=== PATIENT | female | born 1995 | race Caucasian/White ===

== ENCOUNTER 2024-05-11 12:10 | Emergency (ER) | payer MEDICAID ==
[~2024-05-11] VITALS: Ht 165.1 cm; Wt 65.0 kg
[2024-05-11 12:11] VITALS: TEMP 98.2; O2SAT 98
[2024-05-11] MEDS ORDERED: METOCLOPRAMIDE HCL 10MG/2ML VIAL IV STA (12:27)
[2024-05-11] MEDS ORDERED: FAMOTIDINE 20MG/2ML VIAL IV STA (12:27)
[2024-05-11 13:30] LABS: BASOPHILS % 1.1 % (0.0-2.0); EOSINOPHILS % 1.1 % (0.0-5.0); HEMOGLOBIN. 13.9 g/dL (12.0-16.0); LYMPHOCYTES % 22.7 % (20.0-50.0); MEAN CORPUSCULAR HEMOGLOBIN 29.2 pg (28.0-32.0); MEAN CORPUSCULAR HGB CONC 32.3 g/dL (31.0-37.0); MEAN CORPUSCULAR VOLUME 90.5 fL (81.0-99.0); MEAN PLATELET VOLUME 12.4 fl (7.4-10.4); MONOCYTES % 4.9 % (2.0-8.0); NEUTROPHILS % 70.2 % (40.0-76.0); PLATELET 214 x1000/uL (130-400); RED BLOOD CELL COUNT 4.75 mill/uL (4.2-5.4); WHITE BLOOD COUNT 7.5 x1000/uL (4.5-11.0)
[2024-05-11 13:41] LABS: CLARITY URINE CLOUDY (CLEAR); COLOR URINE YELLOW (YELLOW); GLUCOSE URINE NEGATIVE (NEGATIVE); KETONES URINE NEGATIVE (NEGATIVE); LEUKOCYTE ESTERASE URINE 1+ (NEGATIVE); NITRITE URINE NEGATIVE (NEGATIVE); OCCULT BLOOD URINE NEGATIVE (NEGATIVE); PROTEIN URINE NEGATIVE (NEGATIVE); SPECIFIC GRAVITY URINE 1.017 (1.005-1.030); UROBILINOGEN URINE 0.2 E.U./dL (0.2-1.0)
[2024-05-11 13:42] LABS: CHLORIDE 103 mEq/L (98-107); POTASSIUM 3.8 mEq/L (3.5-5.1); SODIUM 137 mEq/L (136-145)
[2024-05-11 13:43] LABS: CALCIUM 10.4 mg/dL (8.7-10.4); CARBON DIOXIDE 30 mEq/L (21-32)
[2024-05-11 13:47] LABS: CREATININE 0.7 mg/dL (0.6-1.0)
[2024-05-11 13:48] LABS: GLUCOSE 122 mg/dL (70-105); UREA NITROGEN BLOOD 11 mg/dL (9-23)
[2024-05-11 13:49] LABS: ALANINE AMINOTRANSFERASE 42 IU/L (10-49)
[2024-05-11 13:50] LABS: ALBUMIN 4.8 g/dL (3.2-4.8); ASPARTATE AMINOTRANSFERASE 30 IU/L (<34); BILIRUBIN DIRECT 0.1 mg/dL (<=3.0); BILIRUBIN TOTAL 0.6 mg/dL (0.1-1.0); PROTEIN TOTAL 7.8 g/dL (6.0-8.3)
[2024-05-11 13:58] LABS: CALCIUM OXALATE CRYSTALS URINE 1+ /lpf; RBC URINE 0-2 /hpf (0-2); SQUAMOUS EPITHELIAL CELL URINE 1+ /lpf (RARE/1+)
[2024-05-11 13:59] LABS: BACTERIA URINE 2+
[2024-05-11] MEDS: SODIUM CHLORIDE 0.9% 1,000 ML IV ONE (17:10)
[2024-05-11] MEDS: METOCLOPRAMIDE HCL 10MG/2ML VIAL IV NR (17:11)
[2024-05-11] MEDS: FAMOTIDINE 20MG/2ML VIAL IV NR (17:11)
[2024-05-11] MEDS ORDERED: ONDA4TAB50 MT (18:08)
[2024-05-11] MEDS ORDERED: FAMO-135 MT (18:08)
[2024-05-11 18:58] VITALS: BP 124/79; PULSE 71; RESP 16; O2SAT 98
== END 2024-05-11 19:02 | disposition home or self-care (01) ==
LOC: ER 12:10
DX: R10.84 Generalized abdominal pain (principal); E11.9 Type 2 diabetes mellitus without complications; E78.00 Pure hypercholesterolemia, unspecified
CPT/HCPCS: 80076; 80048; 81003; 81025; 83690; 85025; 36415; 74176; 96361; 96374; 96375; 99285; J3490; J2765; J7030; Z7610 ×2

== ENCOUNTER 2024-06-16 07:35 | Inpatient (IN) | payer MEDICAID ==
[~2024-06-16] VITALS: Ht 160 cm; Wt 52.2 kg
[~2024-06-16 07:35] MED LIST: FAMO-135 MT; ONDA4TAB50 MT
[2024-06-16] MEDS: KETOROLAC 30MG/ML VIAL IV STA (07:57)
[2024-06-16] MEDS: SODIUM CHLORIDE 0.9% 1,000 ML IV ONE (08:57)
[2024-06-16 09:06] LABS: CLARITY URINE CLEAR (CLEAR); COLOR URINE YELLOW (YELLOW); GLUCOSE URINE NEGATIVE (NEGATIVE); KETONES URINE NEGATIVE (NEGATIVE); NITRITE URINE NEGATIVE (NEGATIVE); OCCULT BLOOD URINE NEGATIVE (NEGATIVE); PH URINE 6.5 (4.5-8.0); PROTEIN URINE NEGATIVE (NEGATIVE)
[2024-06-16 09:07] LABS: LEUKOCYTE ESTERASE URINE NEGATIVE (NEGATIVE); UROBILINOGEN URINE 0.2 E.U./dL (0.2-1.0)
[2024-06-16 10:42] LABS: HEMATOCRIT. 35.3 % (36.0-48.0); HEMOGLOBIN. 11.8 g/dL (12.0-16.0); MEAN CORPUSCULAR HGB CONC 33.3 g/dL (31.0-37.0); MEAN CORPUSCULAR VOLUME 89.9 fL (81.0-99.0); MEAN PLATELET VOLUME 13.7 fl (7.4-10.4); PLATELET 166 x1000/uL (130-400); RED BLOOD CELL COUNT 3.93 mill/uL (4.2-5.4); RED CELL DISTRIBUTION WIDTH 13.5 % (11.6-14.6)
[2024-06-16 10:49] LABS: DIFFERENTIAL COMMENT 1
[2024-06-16 10:53] LABS: HCG SCREEN NEGATIVE
[2024-06-16 10:54] LABS: CHLORIDE 107 mEq/L (98-107); POTASSIUM 3.1 mEq/L (3.5-5.1); SODIUM 137 mEq/L (136-145)
[2024-06-16 10:55] LABS: CALCIUM 8.9 mg/dL (8.7-10.4); CARBON DIOXIDE 24 mEq/L (21-32)
[2024-06-16 11:00] LABS: CREATININE 0.5 mg/dL (0.6-1.0); GLUCOSE 85 mg/dL (70-105); UREA NITROGEN BLOOD 12 mg/dL (9-23)
[2024-06-16 11:07] LABS: PROTHROMBIN TIME 11.4 sec (9.6-11.0)
[2024-06-16 11:08] LABS: TROPONIN I HIGH SENSITIVITY < 4 ng/L (3.0-34)
[2024-06-16] MEDS ORDERED: VANCOMYCIN 1G PREMIX 200 ML IV ONE (11:15)
[2024-06-16] MEDS: SODIUM CHLORIDE 0.9% (SEPSIS BOLUS) IV ONE (11:23)
[2024-06-16] MEDS: PIPERACILLIN/TAZO 3.375G/50ML 50 ML IV ONE (11:23)
[2024-06-16 11:46] LABS: PLATELET ESTIMATE NORMAL
[2024-06-16] MEDS: VANCOMYCIN 1000MG/250ML 250 ML IV NR (11:55)
[2024-06-16] MEDS ORDERED: DEXTROSE 50% WATER 50ML SYRINGE IV PRN (15:00)
[2024-06-16] MEDS: PIPERACILLIN/TAZO 3.375G/50ML 50 ML IV SCH (16:54)
[2024-06-16] MEDS: BLOOD SUGAR DIAGNOSTIC STRIP TEST SCH (16:56)
[2024-06-16] MEDS: ACETAMINOPHEN 325MG TABLET PO PRN (17:06)
[2024-06-16] MEDS: INSULIN LISPRO 100 UNITS/ML SUBCUT SCH (17:07)
[2024-06-16 20:00] VITALS: BP 100/61; PULSE 92; RESP 15; TEMP 37.55856; O2SAT 98
[2024-06-16] MEDS: POTASSIUM CHLORIDE 20MEQ TABLET SR PO NR (22:26)
[2024-06-16] MEDS: PANTOPRAZOLE 40MG DR TABLET PO SCH (22:26)
[2024-06-16] MEDS: HYDROCODONE/ACETAMINOPHEN 5/325MG TABLET PO PRN (22:27)
[2024-06-17] VITALS (7 sets, daily range): BP systolic 80–104; BP diastolic 43–65; PULSE 72–84; RESP 18–20; TEMP 36.72516–36.9474; O2SAT 98–99
[2024-06-17 05:58] LABS: BASOPHILS % 0.3 % (0.0-2.0); EOSINOPHILS % 0.6 % (0.0-5.0); HEMATOCRIT. 31.1 % (36.0-48.0); HEMOGLOBIN. 10.3 g/dL (12.0-16.0); LYMPHOCYTES % 12.3 % (20.0-50.0); MEAN CORPUSCULAR HEMOGLOBIN 30.6 pg (28.0-32.0); MEAN CORPUSCULAR HGB CONC 33.2 g/dL (31.0-37.0); MEAN CORPUSCULAR VOLUME 92.3 fL (81.0-99.0); MEAN PLATELET VOLUME 14.4 fl (7.4-10.4); MONOCYTES % 5.4 % (2.0-8.0); NEUTROPHILS % 81.4 % (40.0-76.0); PLATELET 139 x1000/uL (130-400); RED BLOOD CELL COUNT 3.37 mill/uL (4.2-5.4); WHITE BLOOD COUNT 13.6 x1000/uL (4.5-11.0)
[2024-06-17] MEDS: ONDANSETRON HCL 4MG/2ML INJ IV PRN (06:02)
[2024-06-17 06:14] LABS: CARBON DIOXIDE 23 mEq/L (21-32); CHLORIDE 110 mEq/L (98-107); POTASSIUM 3.7 mEq/L (3.5-5.1); SODIUM 138 mEq/L (136-145)
[2024-06-17 06:15] LABS: CALCIUM 7.7 mg/dL (8.7-10.4); DIFFERENTIAL COMMENT 1
[2024-06-17 06:20] LABS: CREATININE 0.6 mg/dL (0.6-1.0); GLUCOSE 233 mg/dL (70-105); UREA NITROGEN BLOOD 12 mg/dL (9-23)
[2024-06-17 14:41] LABS: HEPATITIS B SURFACE ANTIGEN NEGATIVE (Negative)
[2024-06-17 15:02] LABS: HEPATITIS C AB NON REACTIVE (Neg) (Negative)
[2024-06-18 08:14] VITALS: BP 96/58; PULSE 75; RESP 18; TEMP 36.6696; O2SAT 98
[2024-06-18] MEDS ORDERED: LEVO-65 MT (11:00)
[2024-06-18 12:00] VITALS: BP 99/60; PULSE 78; RESP 18; TEMP 37.11408; O2SAT 99
[2024-06-18 12:26] VITALS: BP 99/60; PULSE 78; TEMP 98; O2SAT 100
[2024-06-18] MEDS: SILVER NITRATE APPLICATOR STICK TOP NR (12:36)
== END 2024-06-18 14:38 | disposition home or self-care (01) | DRG 720 ==
LOC: ER 07:49 → 5WST 11:28 → EDBEDREQTM 11:31 → EDBEDREQ 11:31 → 5WST 13:33 → UNDOADMIN 13:33 → 7WST 06-17 05:51
PROVIDERS: ADMIT Internal Medicine; ATTEND Internal Medicine
PROC: 0Y993ZZ Drainage of Right Lower Extremity, Percutaneous Approach (ICD-10-PCS; principal; 2024-06-18)
DX: A41.89 Other specified sepsis (principal); D64.9 Anemia, unspecified; E10.9 Type 1 diabetes mellitus without complications; E87.6 Hypokalemia; E78.00 Pure hypercholesterolemia, unspecified; L98.0 Pyogenic granuloma; Z20.822 Contact with and (suspected) exposure to COVID-19; L60.0 Ingrowing nail; Z79.4 Long term (current) use of insulin
CPT/HCPCS: 36415; 71045; 80048; 81003; 82962; 83605; 84145; 84484; 84703; 85025; 86705; 87340; 87426; 87804; 93005; 99285; J1815; J1885; J2405; J2543; J3370; J7030

== ENCOUNTER 2025-02-03 21:07 | Inpatient (IN) | payer MEDICAID ==
[~2025-02-03] VITALS: Ht 165.1 cm; Wt 69.9 kg
[~2025-02-03 21:07] MED LIST changes: -FAMO-135 MT; +LEVO-65 MT; +METO5TAB86 MT; -ONDA4TAB50 MT; +PROT40 MT
[2025-02-03 21:08] VITALS: O2SAT 100
[2025-02-03 21:44] LABS: BASOPHILS % 0.5 % (0.0-2.0); EOSINOPHILS % 0.7 % (0.0-5.0); HEMATOCRIT. 41.3 % (36.0-48.0); HEMOGLOBIN. 13.6 g/dL (12.0-16.0); LYMPHOCYTES % 13.5 % (20.0-50.0); MEAN CORPUSCULAR HEMOGLOBIN 29.2 pg (28.0-32.0); MEAN CORPUSCULAR HGB CONC 33.1 g/dL (31.0-37.0); MEAN CORPUSCULAR VOLUME 88.4 fL (81.0-99.0); MEAN PLATELET VOLUME 13.1 fl (7.4-10.4); MONOCYTES % 4.3 % (2.0-8.0); PLATELET 186 x1000/uL (130-400); RED BLOOD CELL COUNT 4.67 mill/uL (4.2-5.4); RED CELL DISTRIBUTION WIDTH 14.5 % (11.6-14.6); WHITE BLOOD COUNT 15.8 x1000/uL (4.5-11.0)
[2025-02-03 21:51] LABS: CHLORIDE 100 mEq/L (98-107); POTASSIUM 3.1 mEq/L (3.5-5.1); SODIUM 137 mEq/L (136-145)
[2025-02-03 21:52] LABS: CARBON DIOXIDE 22 mEq/L (21-32)
[2025-02-03 21:53] LABS: CALCIUM 10.7 mg/dL (8.7-10.4)
[2025-02-03 21:57] LABS: UREA NITROGEN BLOOD 13 mg/dL (9-23)
[2025-02-03 22:16] LABS: GLUCOSE 486 mg/dL (70-105); TROPONIN I HIGH SENSITIVITY < 4 ng/L (3.0-34)
[2025-02-03] MEDS: BLOOD SUGAR DIAGNOSTIC STRIP TEST ONE (22:28)
[2025-02-03] MEDS: SODIUM CHLORIDE 0.9% 1,000 ML IV ONE (22:28)
[2025-02-03 23:15] LABS: HCG SCREEN NEGATIVE
[2025-02-03] MEDS: ONDANSETRON HCL 4MG/2ML INJ IV ONE (23:23)
[2025-02-03] MEDS: MORPHINE SULFATE 4 MG/ML INJ (FOR IV/IM USE) IV ONE (23:25)
[2025-02-04] MEDS: KCL 20MEQ/100ML PREMIX 100 ML IV ONE (01:18)
[2025-02-04] MEDS ORDERED: DEXTROSE 50% WATER 50ML SYRINGE IV PRN ×4 (02:00→03:30)
[2025-02-04 02:14] LABS: BG BASE EXCESS -3.2 mmol/L (-2.0-3.0); BG CARBOXYHEMOGLOBIN 0.3 % (0.5-1.5); BG DEOXYHEMOGLOBIN 1.9 % (0.0-5.0); BG FRACTION INSPIRED OXYGEN 21; BG HCO3 ACT 18.3 mmol/L (21.0-28.0); BG OXYGEN SATURATION 98.1 % (94.0-98.0); BG OXYHEMOGLOBIN 97.8 % (94.0-98.0); BG PCO2 23.5 mmHg (32.0-45.0); BG PH 7.509 (7.350-7.450); BG PO2 102.6 mmHg (83.0-108.0); BG SAMPLE SITE RIGHT BRACHIAL; BG TOTAL HEMOGLOBIN 11.8 g/dL (12.0-16.0); BG VENT MODE ROOM AIR
[2025-02-04] MEDS: PANTOPRAZOLE SODIUM 40 MG/VIAL IV SCH (03:35)
[2025-02-04] MEDS: MORPHINE SULFATE 4 MG/ML INJ (FOR IV/IM USE) IV PRN ×2 (04:30→06:58)
[2025-02-04 05:05] VITALS: BP 131/76; PULSE 69; RESP 20; TEMP 36.1
[2025-02-04] MEDS: HYDROCODONE/ACETAMINOPHEN 10/325MG TABLET PO PRN (05:37)
[2025-02-04] MEDS: SODIUM CHLORIDE 0.9% 1,000 ML IV SCH (05:37)
[2025-02-04] MEDS: ONDANSETRON HCL 4MG/2ML INJ IV PRN (05:39)
[2025-02-04 05:56] LABS: HEMATOCRIT. 35.4 % (36.0-48.0); HEMOGLOBIN. 11.6 g/dL (12.0-16.0); MEAN CORPUSCULAR HEMOGLOBIN 28.6 pg (28.0-32.0); MEAN CORPUSCULAR HGB CONC 32.7 g/dL (31.0-37.0); MEAN CORPUSCULAR VOLUME 87.4 fL (81.0-99.0); MEAN PLATELET VOLUME 13.3 fl (7.4-10.4); PLATELET 143 x1000/uL (130-400); RED BLOOD CELL COUNT 4.05 mill/uL (4.2-5.4); RED CELL DISTRIBUTION WIDTH 14.5 % (11.6-14.6); WHITE BLOOD COUNT 15.9 x1000/uL (4.5-11.0)
[2025-02-04 06:03] LABS: CHLORIDE 103 mEq/L (98-107); POTASSIUM 3.6 mEq/L (3.5-5.1); SODIUM 138 mEq/L (136-145)
[2025-02-04 06:04] LABS: CARBON DIOXIDE 22 mEq/L (21-32)
[2025-02-04 06:09] LABS: CREATININE 0.7 mg/dL (0.6-1.0); GLUCOSE 327 mg/dL (70-105); UREA NITROGEN BLOOD 11 mg/dL (9-23)
[2025-02-04] MEDS: BLOOD SUGAR DIAGNOSTIC STRIP TEST SCH (06:09)
[2025-02-04 06:30] LABS: DIFFERENTIAL COMMENT 1
[2025-02-04] MEDS: INSULIN LISPRO 100 UNITS/ML SUBCUT SCH ×2 (06:46→06:49)
[2025-02-04 08:00] VITALS: BP 98/48; PULSE 60; RESP 16; TEMP 36.7; O2SAT 98
[2025-02-04] MEDS ORDERED: INSULIN LISPRO 100 UNITS/ML SUBCUT SCH (08:20)
[2025-02-04] MEDS ORDERED: NALOXONE HCL 0.4MG/ML VIAL IV PRN (08:30)
[2025-02-04] MEDS ORDERED: BLOOD SUGAR DIAGNOSTIC STRIP TEST SCH (09:00)
[2025-02-04] MEDS: INSULIN GLARGINE 100 UNITS/ML SUBCUT SCH (10:19)
[2025-02-04] MEDS: METOCLOPRAMIDE HCL 10MG/2ML VIAL IV PRN (10:51)
[2025-02-04 12:00] VITALS: BP 94/50; PULSE 64; RESP 18; TEMP 36.2; O2SAT 99
[2025-02-04] MEDS ORDERED: KETOROLAC 30MG/ML VIAL IV PRN (12:30)
[2025-02-04 14:53] LABS: PLATELET ESTIMATE NORMAL
[2025-02-04 16:00] VITALS: BP 109/70; PULSE 69; RESP 18; TEMP 36.1; O2SAT 98
[2025-02-04 18:25] LABS: CLARITY URINE CLOUDY (CLEAR); COLOR URINE YELLOW (YELLOW); GLUCOSE URINE 2+ (NEGATIVE); KETONES URINE 2+ (NEGATIVE); LEUKOCYTE ESTERASE URINE 2+ (NEGATIVE); NITRITE URINE NEGATIVE (NEGATIVE); OCCULT BLOOD URINE TRACE (NEGATIVE); PH URINE 5.5 (4.5-8.0); PROTEIN URINE 1+ (NEGATIVE); SPECIFIC GRAVITY URINE 1.018 (1.005-1.030); UROBILINOGEN URINE 0.2 E.U./dL (0.2-1.0)
[2025-02-04 18:56] LABS: BACTERIA URINE 4+; SQUAMOUS EPITHELIAL CELL URINE 2+ /lpf (RARE/1+)
[2025-02-04 18:57] LABS: RBC URINE 0-2 /hpf (0-2); WBC URINE 50-100 /hpf (0-2)
[2025-02-04 20:00] VITALS: BP 102/67; PULSE 72; RESP 18; TEMP 36.2; O2SAT 99
[2025-02-05] VITALS: BP 122/68; PULSE 76; RESP 18; TEMP 36.3; O2SAT 97
[2025-02-05 04:00] VITALS: BP 108/67; PULSE 62; RESP 18; TEMP 36.2; O2SAT 97
[2025-02-05 09:56] LABS: BASOPHILS % 0.6 % (0.0-2.0); HEMATOCRIT. 36.4 % (36.0-48.0); LYMPHOCYTES % 16.6 % (20.0-50.0); MEAN CORPUSCULAR HEMOGLOBIN 29.1 pg (28.0-32.0); MEAN CORPUSCULAR HGB CONC 33.1 g/dL (31.0-37.0); MEAN CORPUSCULAR VOLUME 88.1 fL (81.0-99.0); MEAN PLATELET VOLUME 13.5 fl (7.4-10.4); MONOCYTES % 5.6 % (2.0-8.0); NEUTROPHILS % 76.2 % (40.0-76.0); PLATELET 169 x1000/uL (130-400); RED BLOOD CELL COUNT 4.13 mill/uL (4.2-5.4); RED CELL DISTRIBUTION WIDTH 14.5 % (11.6-14.6); WHITE BLOOD COUNT 11.5 x1000/uL (4.5-11.0)
[2025-02-05] MEDS ORDERED: LEVO-65 MT (11:07)
[2025-02-05] MEDS: LEVOFLOXACIN 250MG TABLET PO SCH (14:00)
[2025-02-05 15:47] VITALS: BP 103/62; PULSE 68; TEMP 97.7
== END 2025-02-05 18:15 | disposition home or self-care (01) | DRG 425 ==
LOC: ER 21:07 → 8WST 02-04 00:45 → CMPBEDREQ 02-04 00:48
PROVIDERS: ADMIT Internal Medicine; ATTEND Internal Medicine
DX: E87.6 Hypokalemia (principal); D72.825 Bandemia; E11.65 Type 2 diabetes mellitus with hyperglycemia; E78.00 Pure hypercholesterolemia, unspecified; I10 Essential (primary) hypertension
CPT/HCPCS: 36415; 36600; 71045; 74176; 80048; 80061; 81003; 82375; 82805; 82962; 83036; 83880; 84145; 84484; 84703; 85025; 87077; 87186; 93005; 96374; 96375; 99285; J1815; J2270; J2405; J2470; J2765; J3480; J7030

== ENCOUNTER 2025-03-27 10:15 | Emergency (ER) | payer MEDICAID ==
[~2025-03-27] VITALS: Ht 160 cm; Wt 54.0 kg
[2025-03-27 10:38] VITALS: O2SAT 100
[2025-03-27 11:33] LABS: BASOPHILS % 0.7 % (0.0-2.0); EOSINOPHILS % 2.9 % (0.0-5.0); HEMATOCRIT. 37.3 % (36.0-48.0); HEMOGLOBIN. 12.3 g/dL (12.0-16.0); LYMPHOCYTES % 20.4 % (20.0-50.0); MEAN PLATELET VOLUME 12.7 fl (7.4-10.4); MONOCYTES % 6.3 % (2.0-8.0); NEUTROPHILS % 69.7 % (40.0-76.0); PLATELET 166 x1000/uL (130-400); RED BLOOD CELL COUNT 4.22 mill/uL (4.2-5.4); RED CELL DISTRIBUTION WIDTH 14.4 % (11.6-14.6)
[2025-03-27 11:51] LABS: CREATININE 0.7 mg/dL (0.6-1.0); UREA NITROGEN BLOOD 12 mg/dL (9-23)
[2025-03-27 11:53] LABS: ASPARTATE AMINOTRANSFERASE 15 IU/L (<34); BILIRUBIN DIRECT 0.1 mg/dL (<=3.0); BILIRUBIN TOTAL 0.5 mg/dL (0.1-1.0); PROTEIN TOTAL 6.4 g/dL (6.0-8.3)
[2025-03-27 12:01] LABS: CLARITY URINE CLEAR (CLEAR); COLOR URINE YELLOW (YELLOW); GLUCOSE URINE NEGATIVE (NEGATIVE); KETONES URINE NEGATIVE (NEGATIVE); LEUKOCYTE ESTERASE URINE NEGATIVE (NEGATIVE); NITRITE URINE NEGATIVE (NEGATIVE); OCCULT BLOOD URINE NEGATIVE (NEGATIVE); PH URINE 7.5 (4.5-8.0); PROTEIN URINE NEGATIVE (NEGATIVE); SPECIFIC GRAVITY URINE 1.011 (1.005-1.030); UROBILINOGEN URINE 0.2 E.U./dL (0.2-1.0)
[2025-03-27] MEDS: ONDANSETRON 4MG ODT PO ONE (12:29)
[2025-03-27] MEDS: ACETAMINOPHEN 500MG TABLET PO ONE (12:29)
[2025-03-27] MEDS ORDERED: ONDA4TAB50 MT (13:28)
[2025-03-27 13:38] VITALS: BP 123/76; PULSE 89; RESP 16; TEMP 36.8; O2SAT 100
[2025-03-27] MEDS ORDERED: IOHEXOL-300 100 ML BOTTLE ONE (23:49)
[2025-04-10] MEDS ORDERED: POTA-354 MT (14:03)
[2025-04-10] MEDS ORDERED: DOCU100T MT (14:03)
[2025-04-10] MEDS ORDERED: INSLIS SUBCUT (14:03)
[2025-04-10] MEDS ORDERED: LANTUSUD SUBCUT (14:03)
== END 2025-03-27 13:39 | disposition home or self-care (01) ==
LOC: ER 10:15
DX: R10.32 Left lower quadrant pain (principal); E11.9 Type 2 diabetes mellitus without complications; E78.00 Pure hypercholesterolemia, unspecified; I10 Essential (primary) hypertension; Z79.899 Other long term (current) drug therapy; Z87.11 Personal history of peptic ulcer disease; Z87.19 Personal history of other diseases of the digestive system
CPT/HCPCS: 80076; 80048; 81003; 81025; 83690; 85025; 36415; 74177; 99285; Q9967; Q0162; Z7610

== ENCOUNTER 2025-04-03 05:07 | Emergency (ER) | payer MEDICAID ==
[~2025-04-03] VITALS: Ht 160 cm; Wt 54.6 kg
[~2025-04-03 05:07] MED LIST changes: +ONDA4TAB50 MT
[2025-04-03 05:28] VITALS: O2SAT 99
[2025-04-03] MEDS ORDERED: KETOROLAC 15MG/ML VIAL IV ONE (05:45)
[2025-04-03 05:55] LABS: BASOPHILS % 0.1 % (0.0-2.0); EOSINOPHILS % 0.0 % (0.0-5.0); HEMATOCRIT. 37.2 % (36.0-48.0); HEMOGLOBIN. 12.3 g/dL (12.0-16.0); LYMPHOCYTES % 7.3 % (20.0-50.0); MEAN PLATELET VOLUME 12.8 fl (7.4-10.4); MONOCYTES % 3.6 % (2.0-8.0); NEUTROPHILS % 89.0 % (40.0-76.0); PLATELET 193 x1000/uL (130-400); RED BLOOD CELL COUNT 4.24 mill/uL (4.2-5.4); RED CELL DISTRIBUTION WIDTH 14.3 % (11.6-14.6)
[2025-04-03] MEDS: DIPHENHYDRAMINE 50MG/ML VIAL IV ONE (06:03)
[2025-04-03] MEDS: ONDANSETRON HCL 4MG/2ML INJ IV ONE (06:04)
[2025-04-03 06:06] LABS: CREATININE 0.8 mg/dL (0.6-1.0); UREA NITROGEN BLOOD 18 mg/dL (9-23)
[2025-04-03] MEDS: ACETAMINOPHEN 1000MG/100ML 100 ML IV ONE (06:06)
[2025-04-03 06:08] LABS: ASPARTATE AMINOTRANSFERASE 19 IU/L (<34); BILIRUBIN DIRECT 0.2 mg/dL (<=3.0); BILIRUBIN TOTAL 0.9 mg/dL (0.1-1.0); PROTEIN TOTAL 7.4 g/dL (6.0-8.3)
[2025-04-03] MEDS: SODIUM CHLORIDE 0.9% 1,000 ML IV ONE (06:16)
[2025-04-03 06:38] LABS: HCG SCREEN NEGATIVE
[2025-04-03] MEDS: MORPHINE SULFATE 4 MG/ML INJ (FOR IV/IM USE) IV ONE (06:58)
[2025-04-03 07:19] LABS: CLARITY URINE CLEAR (CLEAR); COLOR URINE YELLOW (YELLOW); GLUCOSE URINE 3+ (NEGATIVE); KETONES URINE 4+ (NEGATIVE); LEUKOCYTE ESTERASE URINE NEGATIVE (NEGATIVE); NITRITE URINE NEGATIVE (NEGATIVE); OCCULT BLOOD URINE 3+ (NEGATIVE); PH URINE 5.5 (4.5-8.0); PROTEIN URINE 1+ (NEGATIVE); SPECIFIC GRAVITY URINE 1.043 (1.005-1.030); UROBILINOGEN URINE 0.2 E.U./dL (0.2-1.0)
[2025-04-03 08:02] LABS: SQUAMOUS EPITHELIAL CELL URINE 3+ /lpf (RARE/1+)
[2025-04-03 08:03] LABS: BACTERIA URINE 1+; RBC URINE 0-2 /hpf (0-2)
[2025-04-03] MEDS ORDERED: ONDA4TAB50 PO (08:30)
[2025-04-03] MEDS ORDERED: TOPUD PO (08:30)
[2025-04-03 10:10] VITALS: BP 101/60; PULSE 72; RESP 14; TEMP 36.7; O2SAT 99
[2025-04-10] MEDS ORDERED: DOCU100T MT (14:03)
[2025-04-10] MEDS ORDERED: INSLIS SUBCUT (14:03)
[2025-04-10] MEDS ORDERED: LANTUSUD SUBCUT (14:03)
[2025-04-10] MEDS ORDERED: POTA-354 MT (14:03)
== END 2025-04-03 10:10 | disposition home or self-care (01) ==
LOC: ER 05:07
DX: K52.9 Noninfective gastroenteritis and colitis, unspecified (principal); E11.9 Type 2 diabetes mellitus without complications; Z79.899 Other long term (current) drug therapy; Z98.890 Other specified postprocedural states
CPT/HCPCS: 80076; 80048; 81003; 81025; 84703; 83690; 85025; 36415; 76830; 76856; 96365; 96366; 96375; 99285; J1200; J2405; J2270; J7030; Z7610 ×3; A4606; J0131

== ENCOUNTER 2025-04-03 13:57 | Emergency (ER) | payer MEDICAID ==
[~2025-04-03] VITALS: Ht 160 cm; Wt 55.0 kg
[~2025-04-03 13:57] MED LIST changes: +ONDA4TAB50 PO; +TOPUD PO
[2025-04-03 14:00] VITALS: BP 142/72; TEMP 37; O2SAT 99
[2025-04-03 14:01] VITALS: PULSE 94; RESP 18; O2SAT 98
[2025-04-03] MEDS: HALOPERIDOL LACTATE 5MG/ML VIAL IM ONE (14:14)
[2025-04-03] MEDS: MAGNESIUM/ALUMINUM HYDROXIDE/SIMETHICONE 30ML UDC PO ONE (14:52)
[2025-04-03] MEDS: ACETAMINOPHEN 500MG TABLET PO ONE (14:52)
[2025-04-03] MEDS: VISCOUS LIDOCAINE 2% 15 ML UDC MM ONE (14:52)
[2025-04-10] MEDS ORDERED: POTA-354 MT (14:03)
[2025-04-10] MEDS ORDERED: LANTUSUD SUBCUT (14:03)
[2025-04-10] MEDS ORDERED: DOCU100T MT (14:03)
[2025-04-10] MEDS ORDERED: INSLIS SUBCUT (14:03)
== END 2025-04-03 15:57 | disposition home or self-care (01) ==
LOC: ER 13:57
DX: F12.90 Cannabis use, unspecified, uncomplicated (principal); R11.2 Nausea with vomiting, unspecified; E11.9 Type 2 diabetes mellitus without complications; Z79.899 Other long term (current) drug therapy; Z98.890 Other specified postprocedural states
CPT/HCPCS: 99283; 96372; J1630

== ENCOUNTER 2025-07-04 19:13 | Emergency (ER) | payer MEDICAID ==
[~2025-07-04] VITALS: Ht 162.6 cm; Wt 58.0 kg
[~2025-07-04 19:13] MED LIST changes: +DOCU100T MT; +INSLIS SUBCUT; +LANTUSUD SUBCUT; -LEVO-65 MT; -ONDA4TAB50 PO; +POTA-354 MT
[2025-07-04 19:23] VITALS: O2SAT 99
[2025-07-04 22:53] LABS: BASOPHILS % 0.7 % (0.0-2.0); EOSINOPHILS % 1.1 % (0.0-5.0); HEMATOCRIT. 33.2 % (36.0-48.0); HEMOGLOBIN. 11.0 g/dL (12.0-16.0); LYMPHOCYTES % 14.3 % (20.0-50.0); MEAN PLATELET VOLUME 13.6 fl (7.4-10.4); MONOCYTES % 2.8 % (2.0-8.0); NEUTROPHILS % 81.1 % (40.0-76.0); PLATELET 182 x1000/uL (130-400); RED BLOOD CELL COUNT 3.70 mill/uL (4.2-5.4); RED CELL DISTRIBUTION WIDTH 13.9 % (11.6-14.6)
[2025-07-04 22:56] LABS: CLARITY URINE CLEAR (CLEAR); COLOR URINE YELLOW (YELLOW); GLUCOSE URINE 3+ (NEGATIVE); KETONES URINE NEGATIVE (NEGATIVE); LEUKOCYTE ESTERASE URINE NEGATIVE (NEGATIVE); NITRITE URINE NEGATIVE (NEGATIVE); OCCULT BLOOD URINE NEGATIVE (NEGATIVE); PH URINE >=9.0 (4.5-8.0); PROTEIN URINE NEGATIVE (NEGATIVE); SPECIFIC GRAVITY URINE 1.045 (1.005-1.030); UROBILINOGEN URINE 1.0 E.U./dL (0.2-1.0)
[2025-07-04 23:02] LABS: HCG SCREEN NEGATIVE
[2025-07-04 23:05] LABS: CREATININE 0.7 mg/dL (0.6-1.0)
[2025-07-04 23:05] LABS: *AMPHETAMINES SCREEN URINE NEGATIVE (NEGATIVE); *BARBITURATES SCREEN URINE NEGATIVE (NEGATIVE); *BENZODIAZEPINES SCREEN URINE NEGATIVE (NEGATIVE); *COCAINE SCREEN URINE NEGATIVE (NEGATIVE); CANNABINOID URINE SCREEN PRESUMPTIVE POSITIVE (NEGATIVE); METHADONE URINE SCREEN NEGATIVE (NEGATIVE); OPIATES URINE SCREEN NEGATIVE (NEGATIVE); PHENCYCLIDINE URINE SCREEN NEGATIVE (NEGATIVE); WBC URINE 0-2 /hpf (0-2)
[2025-07-04 23:06] LABS: ETHANOL BLOOD < 10 mg/dL (<10); UREA NITROGEN BLOOD 9 mg/dL (9-23)
[2025-07-04 23:06] LABS: BACTERIA URINE TRACE; ECSTASY MDMA SCREEN URINE NEGATIVE (NEGATIVE); RBC URINE NONE SEEN /hpf (0-2); SQUAMOUS EPITHELIAL CELL URINE FEW /lpf (RARE/1+)
[2025-07-04 23:07] LABS: ASPARTATE AMINOTRANSFERASE 11 IU/L (<34); PROTEIN TOTAL 6.0 g/dL (6.0-8.3)
[2025-07-04 23:08] LABS: BILIRUBIN DIRECT 0.2 mg/dL (<=3.0); BILIRUBIN TOTAL 0.6 mg/dL (0.1-1.0)
[2025-07-04] MEDS: POTASSIUM CHLORIDE 20MEQ TABLET SR PO ONE (23:37)
[2025-07-04] MEDS: IBUPROFEN 600MG TABLET PO ONE (23:38)
[2025-07-04] MEDS: ONDANSETRON 4MG ODT PO ONE (23:38)
[2025-07-05 02:06] VITALS: BP 101/64; PULSE 80; RESP 14; TEMP 36.8; O2SAT 98
== END 2025-07-05 02:11 | disposition home or self-care (01) ==
LOC: ER 19:13
DX: K80.20 Calculus of gallbladder without cholecystitis without obstruction (principal); R10.32 Left lower quadrant pain; E87.6 Hypokalemia; Z79.899 Other long term (current) drug therapy
CPT/HCPCS: 80076; 80305; 80048; 81003; 81025; 80320; 84703; 83690; 83735; 85025; 36415; 74176; 76705; 76830; 76856; 99284; Q0162; G0480